=== PATIENT | male | born 1965 | race Caucasian/White ===

== ENCOUNTER 2018-01-01 10:01 | Emergency (ER) | payer BC, OTHER ==
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
== END 2018-01-01 11:00 | disposition home or self-care (01) ==
LOC: MADERS 10:01
DX: S81.011A Laceration without foreign body, right knee, initial encounter (principal); S13.9XXA Sprain of joints and ligaments of unspecified parts of neck, initial encounter; V89.2XXA Person injured in unspecified motor-vehicle accident, traffic, initial encounter; W22.10XA Striking against or struck by unspecified automobile airbag, initial encounter
CPT/HCPCS: 12001; 70450; 71045; 72125